=== PATIENT | male | born 1945 | race Caucasian/White ===

== ENCOUNTER 2018-01-28 09:20 | Emergency (ER) | payer OTHER ==
[~2018-01-28] VITALS: Ht 175.3 cm; Wt 94.6 kg
[~2018-01-28 09:20] MED LIST: ACCUPRIL40 MG PO; ASCORBIC ACID500 M3 PO; ASPIR-LOW81 MG PO; ATORVASTATIN CA40 MG PO; ELIQUIS5 MG PO; ENDOCET 5-3251 EACH PO; FAMOTIDINE20 MG PO; GLUCOPHAGE500 MG PO; HYDROCHLOROTH12.5 M3 PO; LIPITOR20 MG PO; LISINOPRIL10 MG PO; LOPRESSOR50 MG PO; METOPROLOL TART50 MG PO; VITAMIN E100 UNIT PO
[2018-01-28 10:03] LABS: BASOPHIL (%) 0.8 % (0-1); BASOPHIL COUNT 0.1 K/uL (0-0.1); EOSINOPHIL (%) 3.6 % (0-5); EOSINOPHIL COUNT 0.3 K/uL (0-0.3); HEMATOCRIT 45.3 % (38.0-50.0); HEMOGLOBIN 15.4 G/DL (12.5-16.6); IMMATURE GRANULOCYTE (%) 0.3 % (0.0-0.7); LYMPHOCYTE (%) 14.2 % (15-42); LYMPHOCYTE COUNT 1.1 K/uL (1.0-2.8); MCH 30.3 PG (29.0-34.0); MONOCYTE (%) 8.1 % (3-12); MONOCYTE COUNT 0.6 K/uL (0-0.8); NEUTROPHIL COUNT 5.8 K/uL (1.8-6.4); PLATELET COUNT 177 K/uL (156-360); RBC DIS.WIDTH-SD 42.4 % (39-53); RED BLOOD COUNT 5.09 M/uL (4.00-5.50); WHITE BLOOD COUNT 7.9 K/uL (4.1-10.2)
[2018-01-28 10:13] LABS: CHLORIDE 105 mEq/L (99-109); POTASSIUM 4.2 mEq/L (3.7-5.4); SODIUM 136 mEq/L (136-147)
[2018-01-28 10:14] LABS: INTER. NORMALIZED RATIO 1.2
[2018-01-28 10:34] LABS: GLUCOSE 183 mg/dL (70-99)
[2018-01-28 10:38] LABS: GFR ESTIMATE (CALCULATED) > 59 mL/min/ (58.99-99999)
[2018-01-28 10:39] LABS: UREA NITROGEN (BUN) 19 mg/dL (9-23)
[2018-01-28] MEDS ORDERED: ANTIVERT25 MG PO (13:02)
[2018-01-28 13:18] VITALS: BP 175/97
== END 2018-01-28 13:30 | disposition home or self-care (01) ==
LOC: EME 09:20
PROVIDERS: Emergency Medicine
DX: R42 Dizziness and giddiness (principal); R00.1 Bradycardia, unspecified; I45.4 Nonspecific intraventricular block; I10 Essential (primary) hypertension; E11.9 Type 2 diabetes mellitus without complications; I48.91 Unspecified atrial fibrillation; I25.2 Old myocardial infarction; Z79.01 Long term (current) use of anticoagulants; Z79.84 Long term (current) use of oral hypoglycemic drugs; Z87.891 Personal history of nicotine dependence; Z95.1 Presence of aortocoronary bypass graft; Z85.46 Personal history of malignant neoplasm of prostate; Z88.0 Allergy status to penicillin
CPT/HCPCS: 70450; 80048; 85025; 85610; 93005; 99281; 99284